=== PATIENT | male | born 2000 | race Caucasian/White ===

== ENCOUNTER 2023-11-04 02:47 | Emergency (ER) | payer OTHER ==
[2023-11-04] MEDS: Lidocaine 1% 5 ML VIAL INJECT ONE (02:59)
[2023-11-04] MEDS: Bacitracin Oint 1 GM U/D Packet TOP ONE (02:59)
[2023-11-04] MEDS: Take Home: Amoxicillin/Clavulanate K 875-125 MG Tab, 6 Tab Pack PO ONE (03:12)
== END 2023-11-04 03:18 | disposition home or self-care (01) ==
LOC: DL.ED 02:47
DX: S61.051A Open bite of right thumb without damage to nail, initial encounter (principal); W50.3XXA Accidental bite by another person, initial encounter
CPT/HCPCS: 99282; 99283; A9270; J3490